=== PATIENT | female | born 1995 | race Caucasian/White ===

== ENCOUNTER 2018-01-11 16:03 | Emergency (ER) | payer OTHER ==
[~2018-01-11] VITALS: Ht 165.1 cm; Wt 51.3 kg
[2018-01-11 16:16] VITALS: BP 121/87
--- NOTE | 2018-01-11 16:20 | Emergency Room Report ---
History of Present Illness General Chief Complaint: Nausea, Vomiting, and Diarrhea Source: Patient Present Illness HPI 22-year-old female presents to the emergency department complaining of blood in the vomit once this morning. Patient states that she has been having nausea, vomiting for approximately 3 months and has had blood work performed by her primary care provider who currently believes she may have lymphoma. Patient denies previous episodes of bloody vomitus. Patient described blood-tinged mucus when she vomited early this morning. Patient reports 3 out of 10 in severity generalized abdominal pain. Patient denies dysuria, hematuria, urinary frequency or . Patient reports she frequently gets ill. Patient reports night sweats and fatigue. She also describes that for many years she has had extreme opposite bowel movements. Patient describes diarrhea for several days followed by several days of constipation and does not recall having a normal bowel movement quite some time. Patient states she is currently having some loose stools with some mucus. Patient denies blood in the stool or black tarry stools. Denies frequent NSAID use she does report marijuana use. Denies coffee ground emesis. Denies CP, Palpitations, LOC, AMS, dizziness, Changes in Vision, Sensation, paresthesias, or a sudden severe headache. Pt. Had CT performed several days ago by PMD for which she does not know the results of yet. Allergies: Coded Allergies: No Known Allergies (Unverified , 01/11/18) Patient History Past Medical History: see triage record Past Surgical History: none Pertinent Family History: none Last Menstrual Period: one week ago Now: No Reviewed Nursing Documentation: PMH: Agreed; PSxH: Agreed Nursing Documentation-PMH Past Medical History: No Stated History Review of Systems All Other Systems: negative except mentioned in HPI Physical Exam Vital Signs Date Time Temp Pulse Resp B/P (MAP) Pulse Ox O2 Delivery O2 Flow Rate FiO2 01/11/18 16:11 98.1 88 16 121/87 98 Room Air 98.1 Sp02 EP Interpretation: reviewed, normal General Appearance: alert, GCS 15, non-toxic, mild distress, thin Head: normocephalic, atraumatic Eyes: bilateral eye normal inspection, bilateral eye PERRL ENT: hearing grossly normal, normal voice Neck: full range of motion Respiratory: chest non-tender, lungs clear, normal breath sounds, no respiratory distress, no wheezing, speaking full sentences Cardiovascular #1: regular rate, rhythm, normal capillary refill Gastrointestinal: normal bowel sounds, soft, no peritonitis, non-distended, no guarding, tenderness - generalized mild ttp to deep palpation. Rectal: deferred Genitourinary: normal inspection, no CVA tenderness Musculoskeletal: back normal, gait/station normal, normal range of motion, non- tender Neurologic: alert, oriented x3, responsive, motor strength/tone normal, sensory intact, normal gait, speech normal, grossly normal Psychiatric: judgement/insight normal, anxious Skin: normal color, no rash, warm/dry, well hydrated Lymphatic: other - submandibular and parotid LAd bilaterally. Medical Decision Making PA Attestation Dr. Ventura is my supervising Physician whom patient management has been discussed with. Diagnostic Impression: Primary Impression: Nausea and vomiting in adult patient Additional Impression: Fatigue Qualified Codes: R53.82 - Chronic fatigue, unspecified ER Course 22-year-old female presents to the emergency department complaining of blood in the vomit once this morning. Patient states that she has been having nausea, vomiting for approximately 3 months and has had blood work performed by her primary care provider who currently believes she may have lymphoma. Patient denies previous episodes of bloody vomitus. Patient described blood-tinged mucus when she vomited early this morning. Patient reports 3 out of 10 in severity generalized abdominal pain. Patient denies dysuria, hematuria, urinary frequency or . Patient reports she frequently gets ill. Patient reports night sweats and fatigue. She also describes that for many years she has had extreme opposite bowel movements. Patient describes diarrhea for several days followed by several days of constipation and does not recall having a normal bowel movement quite some time. Patient states she is currently having some loose stools with some mucus. Patient denies blood in the stool or black tarry stools. Denies frequent NSAID use she does report marijuana use. Denies coffee ground emesis. Denies CP, Palpitations, LOC, AMS, dizziness, Changes in Vision, Sensation, paresthesias, or a sudden severe headache. Pt. Had CT performed several days ago by PMD for which she does not know the results of yet. Ddx considered but are not limited to Diverticulitis, acute appy, diarrhea,UC, PUD, GE, pancreatitis, gallstone,vitamin deficiency , IBS, cyclical vomiting, upper GI bleed just to name a few. Vital signs: are WNL, pt. is afebrile ---I reviewed medical records obtained from primary care provider showing normal blood work and recent CT chest with contrast showing several small nodules in the lower lung lr. H&PE are most consistent with Hypovolemia and diarrhea ORDERS: CBC, CMP, lipase, UA: Unremarkable -Urine HCG: negative ED INTERVENTIONS: -Ativan IV pt. is very anxious and tearful regarding IV access/ blood draw/ needles. --- 1000NS, Pepcid 20 mg, and zofran 4mg IV. --d/w pt. lab results as well as GI follow up with possible Endoscopy recommendation . will give pt. GI referral d/w pt. that we cannot guarantee that referral works with her insurance. -I do not identify an emergent condition at this time. With current presentation , pt. is stable for close outpatient follow up and conservative treatment. D/ w pt. to return promptly to ED with worsening or new symptoms.- Pt. (and or responsible democrat) verbalizes' understanding and agreement with proposed treatment plan.proposed treatment plan. DISCHARGE: At this time pt. is stable for d/c to home. Will provide printed patient care instructions, and any necessary prescriptions. Care plan and follow up instructions have been discussed with the patient prior to discharge. Labs Test 01/11/18 16:21 01/11/18 17:05 Urine HCG, Qualitative Negative (NEGATIVE) White Blood Count 6.4 K/UL (4.8-10.8) Red Blood Count 4.54 M/UL (4.20-5.40) Hemoglobin 13.4 G/DL (12.0-16.0) Hematocrit 40.5 % (37.0-47.0) Mean Corpuscular Volume 89 FL (80-99) Mean Corpuscular Hemoglobin 29.6 PG (27.0-31.0) Mean Corpuscular Hemoglobin Concent 33.2 G/DL (32.0-36.0) Red Cell Distribution Width 12.6 % (11.6-14.8) Platelet Count 246 K/UL (150-450) Mean Platelet Volume 7.7 FL (6.5-10.1) Neutrophils (%) (Auto) 59.8 % (45.0-75.0) Lymphocytes (%) (Auto) 27.7 % (20.0-45.0) Monocytes (%) (Auto) 10.4 % (1.0-10.0) Eosinophils (%) (Auto) 1.4 % (0.0-3.0) Basophils (%) (Auto) 0.7 % (0.0-2.0) Sodium Level 138 MMOL/L (136-145) Potassium Level 3.6 MMOL/L (3.5-5.1) Chloride Level 103 MMOL/L (98-107) Carbon Dioxide Level 26 MMOL/L (21-32) Anion Gap 9 mmol/L (5-15) Blood Urea Nitrogen 6 mg/dL (7-18) Creatinine 0.6 MG/DL (0.55-1.30) Estimat Glomerular Filtration Rate > 60 mL/min (>60) Glucose Level 86 MG/DL (74-106) Calcium Level 9.4 MG/DL (8.5-10.1) Total Bilirubin 0.4 MG/DL (0.2-1.0) Aspartate Amino Transf (AST/SGOT) 16 U/L (15-37) Alanine Aminotransferase (ALT/SGPT) 17 U/L (12-78) Alkaline Phosphatase 65 U/L (46-116) Total Protein 7.6 G/DL (6.4-8.2) Albumin 4.0 G/DL (3.4-5.0) Globulin 3.6 g/dL Albumin/Globulin Ratio 1.1 (1.0-2.7) Lipase 107 U/L (73-393) Last Vital Signs Date Time Temp Pulse Resp B/P (MAP) Pulse Ox O2 Delivery O2 Flow Rate FiO2 01/11/18 16:11 98.1 88 16 121/87 98 Room Air 98.1 Disposition: HOME, SELF-CARE Condition: Stable Scripts Ondansetron Odt* (ZOFRAN ODT*) 4 Mg Tab.rapdis 4 MG ORAL Q6H PRN for Nausea & Vomiting, #10 TAB Prov: Aissatou Soriano P.A. 01/11/18 Ranitidine Hcl* (ZANTAC*) 150 Mg Tablet 150 MG ORAL TWICE A DAY for 7 Days, #14 TAB Prov: Aissatou Soriano P.A. 01/11/18 Referrals: Romain Cutler Patient Instructions: Food Choices for Gastroesophageal Reflux Disease, Adult, Indigestion, [id number] Additional Instructions: Take medications as directed. Follow up with a GI SPECIALIST in 3-5 days, even if your symptoms have resolved. -- Please review attached information for recommended food choices. Return sooner to ED if new symptoms occur, or current symptoms become worse. - Please note that this Emergency Department Report was dictated using [employer] of cardiac cath lab technology software, occasionally this can lead to erroneous entry secondary to interpretation by the dictation equipment. Aissatou Soriano Jan 11, 2018 16:20
[2018-01-11] MEDS ORDERED: LORazepam Inj 2mg/ml 1ml IV ONE (16:45)
[2018-01-11 17:19] LABS: BASOPHILS % (AUTO) 0.7 % (0.0-2.0); EOSINOPHILS % (AUTO) 1.4 % (0.0-3.0); HEMATOCRIT 40.5 % (37.0-47.0); HEMOGLOBIN 13.4 G/DL (12.0-16.0); LYMPHOCYTES % (AUTO) 27.7 % (20.0-45.0); MEAN CORPUSCULAR VOLUME 89 FL (80-99); MONOCYTES % (AUTO) 10.4 % (1.0-10.0); NEUTROPHILS % (AUTO) 59.8 % (45.0-75.0); PLATELET COUNT 246 K/UL (150-450); RED BLOOD COUNT 4.54 M/UL (4.20-5.40); RED CELL DISTRIBUTION WIDTH 12.6 % (11.6-14.8); WHITE BLOOD COUNT 6.4 K/UL (4.8-10.8)
[2018-01-11 17:33] LABS: ANION GAP 9 mmol/L (5-15); BLOOD UREA NITROGEN 6 mg/dL (7-18); CALCIUM 9.4 MG/DL (8.5-10.1); CARBON DIOXIDE 26 MMOL/L (21-32); CHLORIDE 103 MMOL/L (98-107); CREATININE 0.6 MG/DL (0.55-1.30); POTASSIUM 3.6 MMOL/L (3.5-5.1); SODIUM 138 MMOL/L (136-145)
[2018-01-11 17:47] LABS: ALANINE AMINOTRANSFERASE 17 U/L (12-78); ALBUMIN/GLOBULIN RATIO 1.1 (1.0-2.7); ALKALINE PHOSPHATASE 65 U/L (46-116); ASPARTATE AMINO TRANSFERASE 16 U/L (15-37); BILIRUBIN,TOTAL 0.4 MG/DL (0.2-1.0)
[2018-01-11] MEDS ORDERED: ZOFRAN ODT4 MG ORAL (18:23)
[2018-01-11] MEDS ORDERED: ZANTAC150 MG ORAL (18:23)
[2018-01-11] MEDS ORDERED: Sodium Chloride 500ML 500 ML IV ONE (18:30)
[2018-01-11 19:28] VITALS: BP 118/75
== END 2018-01-11 19:31 | disposition home or self-care (01) ==
LOC: EMR 17:20
DX: R11.2 Nausea with vomiting, unspecified (principal); R53.82 Chronic fatigue, unspecified
CPT/HCPCS: 36415; 80053; 81025; 83690; 85025; 96361; 96374; 96375; 99284; J2405; S0028